=== PATIENT | female | born 1990 | race Caucasian/White ===

== ENCOUNTER 2018-09-19 14:44 | Emergency (ER) | payer SELFPAY ==
[~2018-09-19] VITALS: Ht 162.6 cm; Wt 59.2 kg
[2018-09-19] MEDS ORDERED: NALOXONE HCL 1 MG/ML 2 ML SYG ONE (14:57)
[2018-09-19] MEDS ORDERED: NALOXONE HCL 1 MG/ML 2 ML SYG IVP ONE ×2 (15:15→21:15)
[2018-09-19] MEDS ORDERED: ONDANSETRON HCL 4 MG/2 ML VIAL IVP ONE (15:15)
[2018-09-19] MEDS ORDERED: SODIUM CHLORIDE 0.9% 1,000 ML IV ONE ×3 (15:15→21:15)
[2018-09-19] MEDS ORDERED: LORazepam 2 MG/ML VIAL IVP ONE ×2 (15:45→17:00)
[2018-09-19] MEDS ORDERED: HALOPERIDOL LACTATE 5 MG/ML VIAL IVP ONE (15:45)
[2018-09-19 16:14] LABS: BASOPHILS % (AUTO) 0.4 % (0.0-2.0); EOSINOPHILS % (AUTO) 1.1 % (1.0-6.0); HEMATOCRIT 36.3 % (36-46); HEMOGLOBIN 12.4 g/dL (12.0-16.0); LYMPHOCYTES % (AUTO) 19.1 % (22.0-44.0); MEAN CORPUSCULAR HEMOGLOBIN 30.3 pg (26.0-34.0); MEAN CORPUSCULAR VOLUME 89 fL (80-100); MONOCYTES # (AUTO) 0.4 K/uL (0.1-1.0); MONOCYTES % (AUTO) 7.7 % (2.0-9.0); NEUTROPHILS # (AUTO) 3.8 K/uL (1.8-7.7); NEUTROPHILS % (AUTO) 71.7 % (40.0-70.0); PLATELET COUNT (AUTO) 227 K/uL (150-450); RED BLOOD CELL COUNT(AUTO) 4.07 MIL/uL (4.00-5.20); RED CELL DISTRIBUTION WIDTH 12.5 % (11.5-14.5)
[2018-09-19 16:31] LABS: APPEARANCE,URINE CLOUDY (CLEAR); BILIRUBIN,URINE NEGATIVE (NEGATIVE); GLUCOSE, URINE (UA) NEGATIVE (NEGATIVE); KETONES,URINE NEGATIVE (NEGATIVE); LEUKOCYTE ESTERASE ,URINE LARGE (NEGATIVE); NITRATE,URINE NEGATIVE (NEGATIVE); OCCULT BLOOD,URINE TRACE (NEGATIVE); PH,URINE 5.5 (5.0-8.0); PROTEIN,URINE NEGATIVE (NEGATIVE); UROBILINOGEN,URINE 0.2 mg/dL (<=1.0)
[2018-09-19 16:34] LABS: AMPHET/METH SCREEN,URINE POSITIVE (NEGATIVE); BARBITURATE SCREEN, URINE NEGATIVE (NEGATIVE); BENZODIAZEPINES SCREEN,URINE NEGATIVE (NEGATIVE); CANNABINOID SCREEN,URINE NEGATIVE (NEGATIVE); COCAINE SCREEN,URINE NEGATIVE (NEGATIVE); METHADONE SCREEN, URINE NEGATIVE (NEGATIVE); OPIATE SCREEN,URINE POSITIVE (NEGATIVE)
[2018-09-19 16:36] LABS: PHENCYCLIDINE SCREEN,URINE NEGATIVE (NEGATIVE)
[2018-09-19 16:36] LABS: ANION GAP 8 mmol/L (8-16); CALCIUM, TOTAL 8.9 mg/dL (8.8-10.5); CARBON DIOXIDE 28 mmol/L (22-29); CHLORIDE 104 mmol/L (98-107); CREATININE 0.73 mg/dL (0.60-1.30); GLUCOSE,RANDOM 98 mg/dL (70-110); POTASSIUM 3.7 mmol/L (3.5-5.1); SODIUM SERUM 140 mmol/L (136-145); UREA NITROGEN, BLOOD 7 mg/dL (7-18)
[2018-09-19 16:38] LABS: GLOMERULAR FILTR. RATE CALC > 60 mL/min (>60)
[2018-09-19 16:47] LABS: SALICYLATE < 2.8 mg/dL (2.8-20.0)
[2018-09-19 16:51] LABS: BACTERIA,URINE Many /HPF (None Seen); SQUAMOUS EPITHELIAL CELL,UR Many /LPF (None Seen); WBC,URINE 26-50 /HPF (0-5)
[2018-09-19 17:00] LABS: ALANINE AMINOTRANSFERASE 32 U/L (12-78); ALBUMIN 3.2 g/dL (3.4-5.0); ALKALINE PHOSPHATASE 59 U/L (46-116); ASPARTATE AMINOTRANSFERASE 25 U/L (15-37); BILIRUBIN,TOTAL 0.4 mg/dL (0.1-1.0); HCG,QUANTITATIVE < 1 mIU/mL (0-6); TOTAL PROTEIN, SERUM 7.2 g/dL (6.4-8.2)
[2018-09-19 17:01] LABS: ACETAMINOPHEN < 2 mcg/mL (10-30)
[2018-09-19] MEDS ORDERED: CefTRIAXone 1 GM/DEXTROSE 50 ML IV ONE (17:15)
[2018-09-19] MEDS ORDERED: METRONIDAZOLE IV ONE ×2 (17:15→17:17)
[2018-09-19] MEDS ORDERED: CONTAINER EMPTY IV ONE ×2 (17:15→17:17)
[2018-09-19] MEDS ORDERED: SOD CHL IV ONE ×2 (17:15→17:17)
[2018-09-19 18:06] LABS: GLUCOSE,POINT OF CARE 87 MG/DL (70-110)
[2018-09-19 22:57] VITALS: BP 102/96
== END 2018-09-19 23:45 | disposition home or self-care (01) ==
LOC: EMS 14:44 → EDBD 14:44 → EMS 23:45
DX: T40.601A Poisoning by unspecified narcotics, accidental (unintentional), initial encounter (principal); N39.0 Urinary tract infection, site not specified; F15.10 Other stimulant abuse, uncomplicated; A59.9 Trichomoniasis, unspecified; F11.90 Opioid use, unspecified, uncomplicated; F14.90 Cocaine use, unspecified, uncomplicated; Y92.89 Other specified places as the place of occurrence of the external cause
CPT/HCPCS: 36415; 80053; 80307; 81001; 82962; 84702; 85025; 87086; 93005; 96361; 96365; 96366; 96368; 96375; 96376; 99291; G0480 ×2; G0481; J0696; J1630; J2060; J2310; J2405; J3490; J7030